=== PATIENT | male | born 1955 | race Caucasian/White ===

== ENCOUNTER 2020-01-04 05:45 | Day surgery (SDC) | payer MEDICARE, OTHER ==
[~2020-01-04] VITALS: Ht 165.1 cm; Wt 82.1 kg
--- NOTE | ~2020-01-04 | OR ---
[facility] [address], [place] [address] Draft DATE OF OPERATION: 01/04/2020 SURGEON: Shira Simmons MD PREOPERATIVE DIAGNOSIS: Metastatic bladder cancer. POSTOPERATIVE DIAGNOSIS: Metastatic bladder cancer. PROCEDURES: 1. Placement of right subclavian port catheter. 2. Physician directed fluoroscopy. ESTIMATED BLOOD LOSS: None. INDICATIONS: Ariana is a 64-year-old gentleman, who has been diagnosed with metastatic bladder cancer. 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 He is preparing for chemotherapy. Consequently, he was asked to see me for a placement of a [id number]. I had met with Ariana and his in the office. He has a very short neck, very heavy ruiz. He has a right carotid endarterectomy incision that runs the full length of his neck down on top of the next to the clavicle. Consequently, we decided we would use a subclavian approach. We gently approached the left subclavian first and then the right. He also had bilateral shoulder surgery. He has a small surgical incision in the sternal notch next to the manubrium as well. I explained to Ariana that if the subclavian approaches were inaccessible, we would use the left internal jugular and then possibly the right internal jugular vein. I reviewed with Ariana and his the nature of a [id number]. We discussed the surgery in detail. He understands there is risk including, but not limited to bleeding, infection, scarring, change in contour of the skin as well as pneumothorax requiring chest tube placement and catheter embolization requiring retrieval. He had expressed understanding and wished to proceed. PROCEDURE NOTE: I have met with Ariana this morning in our preop area. His stayed at home. After answering his questions, we took Ariana into our operating room and placed him in the supine position. He was placed under monitored anesthesia care. He was prepped and draped in the usual sterile fashion. SCDs were utilized along with subcutaneous PATIENT NAME: ARIANA CISNEROS OPERATIVE REPORT DATE OF : 51 REPORT #: [id number] PHYSICIAN: SHIRA SIMMONS MD PCP: DAMEON HILL MD REPORT IS CONFIDENTIAL AND NOT TO BE RELEASED WITHOUT AUTHORIZATION [facility] [address], [place] [address] Draft heparin. He was given preoperative antibiotics. He was then prepped and draped in the usual sterile fashion. He was placed in the Trendelenburg position. We approached the left chest wall first. Local anesthetic was injected in the left chest wall and underneath the clavicle. We passed the needle twice underneath the clavicle and had no access to the subclavian vein. We then transferred to the right side. We injected local anesthetic again in the chest wall and with the 2nd pass of the needle, we accessed the right subclavian vein. We were able to pass the wire without any resistance whatsoever. We checked the position of wire with the help of fluoroscopy unit. We injected some additional local anesthetic over the chest wall and developed an oblique incision in the subcutaneous pocket with the help of the Pean clamp. We then passed the dilator over the wire without any resistance whatsoever. The position of the dilator was checked with the help of our fluoroscopy unit. We then removed the wire and inserted the catheter up to 15 cm on the chest wall. The catheter and the position of the catheter tip was checked with the fluoroscopy unit once again. The catheter was cut to 17 cm in length and the hub was inserted without difficulty. We were able to draw and flush quite readily with injectable saline. We then filled the catheter with concentrated heparin. The catheter was held in place on the chest wall with interrupted 2-0 Prolene sutures. The wound was irrigated and suctioned out until clear. We closed the subcutaneous tissues in the dermis with interrupted 3-0 subcuticular Monocryl sutures. Skin edges were reapproximated with running 5-0 fast absorbing plain gut suture. Dry gauze and tape were then applied. Ariana was then transferred over to his hospital bed and taken into recovery room in stable condition. Our portable chest x-ray is pending. Shira Simmons MD ALB/MODL /[id number] cc: MD Shira Turpin MD Daniel C Hambleton, MD Robert C Quackenbush, MD PATIENT NAME: ARIANA CISNEROS OPERATIVE REPORT DATE OF : 51 REPORT #: [id number] PHYSICIAN: SHIRA SIMMONS MD PCP: DAMEON HILL MD REPORT IS CONFIDENTIAL AND NOT TO BE RELEASED WITHOUT AUTHORIZATION [address] [address] Draft Roni Butt MD Copies: DENISHA DOWD MD, ANDREW L MD HAMBLETON, DANIEL C MD QUACKENBUSH, ROBERT C MD ~ PATIENT NAME: ARIANA CISNEROS OPERATIVE REPORT DATE OF : 51 REPORT #: [id number] PHYSICIAN: SHIRA SIMMONS MD PCP: DAMEON HILL MD REPORT IS CONFIDENTIAL AND NOT TO BE RELEASED WITHOUT AUTHORIZATION
[~2020-01-04 05:45] MED LIST: ASPIRIN EC325 MG PO; ATIVAN1 MG PO; CARBOPLATIN150 MG IV; CELEXA20 MG PO; CIPRO500 MG PO; DECADRON4 MG; FLOMAX0.4 MG PO; GEMCITABINE HCL1 GM IV; LIPITOR40 MG; METOPROLOL TART25 MG PO; MIRALAX17 GM PO; NITROSTAT0.4 MG SL; ONDANSETRON ODT8 MG PO; OXAYDO7.5 MG PO; OXYBUTYNIN CHLOR5 MG PO; OXYCODONE HCL5 M1 PO; SENNA8.6 MG PO; SYMBICORT 16010.2 GM INH; VITAMIN B122500 MCG PO; VITAMIN C100 MG PO
== END 2020-01-04 09:21 | disposition home or self-care (01) ==
LOC: OPS 05:45 → DS 05:45
PROVIDERS: Colon & Rectal Surgery
PROC: 05H533Z Insertion of Infusion Device into Right Subclavian Vein, Percutaneous Approach (ICD-10-PCS; 2020-01-04)
PROC: B516YZA Fluoroscopy of Right Subclavian Vein using Other Contrast, Guidance (ICD-10-PCS; 2020-01-04)
PROC: 0JH60XZ Insertion of Tunneled Vascular Access Device into Chest Subcutaneous Tissue and Fascia, Open Approach (ICD-10-PCS; principal; 2020-01-04 06:45)
DX: C67.9 Malignant neoplasm of bladder, unspecified (principal); Z79.82 Long term (current) use of aspirin; Z79.899 Other long term (current) drug therapy; F41.9 Anxiety disorder, unspecified
CPT/HCPCS: 71045; 77001; C1788; J0690; J1644; J2001; J2704; J7121